=== PATIENT | male | born 1970 | race Caucasian/White ===

== ENCOUNTER → 2020-10-02 | Outpatient (CLI) | payer OTHER ==
[~2020-10-02] MED LIST: CELEXA20 MG PO; DEXAMETHASONE1 MG PO; DEXAMETHASONE4 MG PO; DIFLUCAN150 MG PO; ELIQUIS 5 MG TAB5 MG PO; LISINOPRIL-HCT1 EAC1 PO; MEDROL DOSEPAK 24 MG PO; MYCOSTATIN100000 UTS PO; PROTONIX 40 MG40 M1 PO; VENTOLIN HFA 66.7 GM INH
== END ==
LOC: EXRD 10:09
DX: R05 Cough (principal); R06.00 Dyspnea, unspecified; Z86.16 Personal history of COVID-19
CPT/HCPCS: 71046

== ENCOUNTER → 2020-10-16 | Outpatient (CLI) | payer OTHER | LOC: RT 13:08 → KOH-I 13:08 | DX: R09.02 Hypoxemia (principal); B94.8 Sequelae of other specified infectious and parasitic diseases; R06.02 Shortness of breath; R91.8 Other nonspecific abnormal finding of lung field | CPT/HCPCS: 36600; 71250; 82803 ==

== ENCOUNTER → 2020-10-23 | Outpatient (CLI) | payer OTHER | LOC: HEART 5 15:42 | DX: R06.02 Shortness of breath (principal); B94.8 Sequelae of other specified infectious and parasitic diseases; R94.2 Abnormal results of pulmonary function studies | CPT/HCPCS: 94060; 94729 ==

== ENCOUNTER 2021-01-23 19:17 | Emergency (ER) | payer OTHER ==
[~2021-01-23 19:17] MED LIST changes: -MEDROL DOSEPAK 24 MG PO; -VENTOLIN HFA 66.7 GM INH
[2021-01-23 19:56] LABS: HEMOGLOBIN 16.1 gm/dl (14.0-17.5); RED BLOOD COUNT 5.44 M/UL (4.20-5.50); WHITE BLOOD COUNT 8.7 K/UL (4.5-11.0)
[2021-01-23] MEDS ORDERED: MEDROL DOSEPAK 24 MG PO (21:34)
[2021-01-23] MEDS ORDERED: VENTOLIN HFA 66.7 GM INH (21:34)
== END 2021-01-23 21:38 | disposition home or self-care (01) ==
LOC: ER1 19:17
PROVIDERS: Emergency Medicine
DX: R06.2 Wheezing (principal); I10 Essential (primary) hypertension; Z86.73 Personal history of transient ischemic attack (TIA), and cerebral infarction without residual deficits
CPT/HCPCS: 71046; 80048; 85025; 96372; 99285; J1100